=== PATIENT | female | born 1985 | race Two or more races ===

== ENCOUNTER 2022-03-09 16:32 | Outpatient (CLI) | payer BC | END 2022-03-09 16:33 | disposition home or self-care (01) | LOC: EDBD → CSHRAD 16:32 → MERGE 16:32 → CSHRAD 16:33 | PROVIDERS: ATTEND Family Medicine | DX: R76.12 Nonspecific reaction to cell mediated immunity measurement of gamma interferon antigen response without active tuberculosis (principal) | CPT/HCPCS: 71046 ==